=== PATIENT | male | born 1975 | race Caucasian/White ===

== ENCOUNTER 2016-07-28 19:50 | Emergency (ER) | payer BC ==
[2016-07-28] MEDS ORDERED: ASPIRIN 81 MG CHEW TAB ONE (19:56)
== END 2016-07-28 23:02 | disposition home or self-care (01) ==
LOC: ER 19:50
DX: R07.9 Chest pain, unspecified (principal); Z87.19 Personal history of other diseases of the digestive system
CPT/HCPCS: 36415; 71010; 80053; 82550; 83735; 84484; 85025; 85610; 85730; 93005